=== PATIENT | male | born 1930 | race Caucasian/White ===

== ENCOUNTER 2016-08-30 11:33 | Observation (INO) | payer MEDICARE, BC ==
[2016-08-30 12:14] LABS: BASOPHIL % 0.2 % (0.0-0.4); Eosinophil % 2.6 % (0.00-5.0); Granulocytes % 71.6 % (36.0-66.0); Mean Cell Volume 90.6 fl (78-100); Mean Corpuscular Hemoglobin 28.8 pg (26-32); Mean Platelet Volume 8.8 fl (6-9.5); Monocytes % 9.6 % (0.0-12.0); Platelet Count 168 K/mm3 (150-450); Red Blood Count 4.45 M/mm3 (4.1-5.6); Red Cell Distribution Width 16.7 % (11.5-14.0); White Blood Count 5.3 K/mm3 (4.0-10.5)
[2016-08-30 12:32] LABS: INR 2.54 (0.8-3.0); PROTIME 27.7 SECONDS (8.83-12.87)
[2016-08-30 13:02] LABS: Collection Type VOID
[2016-08-30 13:03] LABS: COMPLETE URINE MICROSCOPIC? YES; Ph 5.5 (5-6)
[2016-08-30 13:10] LABS: ANION GAP 14.8 MEQ/L (5-15); BILIRUBIN,TOTAL 0.3 mg/dL (0.2-1.0); Carbon Dioxide 23.6 mEq/L (21-32); Potassium 4.3 mEq/L (3.5-5.1); Total Protein 7.8 gm/dL (6.4-8.2)
[2016-08-30 13:13] LABS: Bacteria MODERATE /HPF (NEGATIVE); Epithelial Cells FEW /HPF (FEW); WBC 25-50 /HPF (0-5); Yeast MANY /HPF (NEGATIVE)
--- NOTE | 2016-08-30 14:30 | ERPHSYRPT ---
- History of Present Illness Time Seen by Provider: 08/30/16 11:33 Source: patient, family, EMS, old records Exam Limitations: clinical condition, physical impairment Patient Subjective Stated Complaint: increased loc intermittent for days Triage Nursing Assessment: states he has increased confusion for days-- more lethargic. incont of urine which is not normal. pt pleasantly confused. pupils 2mm and reactive. 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 skin warm and dry. Time of Onset/Last Time Seen Normal: 3 days ago was at baseline for post stroke Timing/Duration: day(s) (3) Severity: moderate Character of Deficits: new weakness, general (difuse), other (urine incontinence ) Deficits: cannot walk, decrease ability to stand, weak Baseline/Normal Cognition: alert but confused Current Cognition: alert but confused Baseline Gait: unable to walk Associated Symptoms: confusion, weakness Allergies/Adverse Reactions: No Known Drug Allergies Allergy (Verified 08/30/16 11:50) Home Medications: Atorvastatin Calcium 40 mg PO HS 08/07/15 [History] Carvedilol 3.125 mg [Coreg 3.125 MG] 3.125 mg PO BID 08/07/15 [History] Donepezil HCl 10 mg [Aricept 10 MG] 10 mg PO HS 08/07/15 [History] Duloxetine HCl 30 mg [Cymbalta 30 MG Capsule] 60 mg PO DAILY 08/07/15 [ History] Insulin Glargine [Lantus Insulin] 40 units SQ BIDPRN PRN 08/07/15 [History] Memantine HCl 5 mg [Namenda 5 MG] 10 mg PO BID 08/07/15 [History] Omeprazole [Prilosec] 20 mg PO DAILY 08/07/15 [History] Tramadol HCl 50 mg [Ultram 50 mg] 50 mg PO Q4HPRN PRN 08/07/15 [History] Trazodone HCl 100 mg PO HS 08/07/15 [History] Warfarin Sodium 5 mg [Coumadin 5 MG] 5 mg PO DAILY 08/07/15 [History] Bumetanide 0.5 mg PO DAILY 02/22/16 [History] Hx Tetanus, Diphtheria Vaccination/Date Given: Yes Hx Influenza Vaccination/Date Given: Yes Hx Pneumococcal Vaccination/Date Given: Yes Immunizations Up to Date: Yes - Review of Systems Constitutional: Lethargy, Weakness Eyes: No Symptoms Ears, Nose, & Throat: No Symptoms Respiratory: No Symptoms Cardiac: No Symptoms Abdominal/Gastrointestinal: No Symptoms Genitourinary Symptoms: Incontinence Skin: No Symptoms Neurological: Lethargy Psychological: Depression Endocrine: No Symptoms Hematologic/Lymphatic: No Symptoms Immunological/Allergic: No Symptoms - Past Medical History Pertinent Past Medical History: Yes Neurological History: Stroke ENT History: No Pertinent History Cardiac History: Arrhythmia, Congestive Heart Failure, High Cholesterol, Hypertension Respiratory History: Bronchitis, CHF, Pneumonia Endocrine Medical History: Diabetes Type II Musculoskeletal History: No Pertinent History GI Medical History: GERD, Gallbladder Disease History: Other Psycho-Social History: No Pertinent History Male Reproductive Disorders: Prostate Problems Other Medical History: ILEUS ANEURYSM. ENLARGED PROSTATE. KIDNEY STONES - Past Surgical History Past Surgical History: Yes Neuro Surgical History: No Pertinent History Cardiac: Other Respiratory: No Pertinent History Gastrointestinal: Cholecystectomy Genitourinary: Kidney Surgery Musculoskeletal: No Pertinent History Male Surgical History: No Pertinent History Other Surgical History: left carotid artery. STENT PLACEMENTS IN BOTH URETERS - Social History Smoking Status: Never smoker Exposure to second hand smoke: Yes Drug Use: none Patient Lives Alone: No - Nursing Vital Signs Nursing Vital Signs: Initial Vital Signs Temperature 97.9 F Temperature Source Oral Pulse Rate 70 Respiratory Rate 18 Blood Pressure 139/70 Pain Intensity 0 - Vaibhav Coma Scale Best Eye Response ([place]): (4) open spontaneously Best Verbal Response ([place]): (4) confused conversation Best Motor Response ([place]): (6) obeys commands [place] Total: 14 - Physical Exam General Appearance: no apparent distress, lethargy Eye Exam: bilateral eye: normal inspection, PERRL Ears, Nose, Throat Exam: normal ENT inspection, pharynx normal Neck Exam: normal inspection, non-tender, supple, full range of motion Respiratory: normal breath sounds, lungs clear Cardiovascular: regular rate/rhythm, normal heart sounds, normal peripheral pulses, edema Gastrointestinal: soft, normal bowel sounds Extremity Exam: pelvis stable, pedal edema, swelling Mental Status: alert, cooperative, disoriented to person, disoriented to time, 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, tongue midline Motor/Sensory: weak motor strength RUE, weak motor strength RLE Skin Exam: normal color, warm, dry SpO2 Interpretation: normal SpO2: 95 Oxygen Delivery: Room Air - Course Nursing assessment & vital signs reviewed: Yes EKG Interpreted by Me: RATE (76), Sinus Rhythm, NORMAL AXIS, 1st degree AV Block , NORMAL QRS, Other (No acute ischemic changes) Ordered Tests: Active Orders 24 hr Category Date Time Status Catheter-Sheridan Omalley STAT Care 08/30/16 11:55 Active EKG-ER Only STAT Care 08/30/16 11:55 Active IV Insertion STAT Care 08/30/16 12:42 Active Oxygen-ED Only NASAL CANNULA 2 lpm Care 08/30/16 11:55 Active Pulse Oximetry (ED) STAT Care 08/30/16 12:43 Active CHEST 1 VIEW (PORTABLE) Stat Exams 08/30/16 11:56 Taken HEAD WITHOUT CONTRAST [CT] Stat Exams 08/30/16 11:58 Taken BLOOD CULTURE Stat Lab 08/30/16 12:55 Received CBC W DIFF Stat Lab 08/30/16 12:00 Completed CMP Stat Lab 08/30/16 12:00 Completed PROTIME WITH INR Stat Lab 08/30/16 12:00 Completed UA W/ MICROSCOPIC Stat Lab 08/30/16 12:55 Completed Lab/Rad Data: Laboratory Result Diagrams 08/30/16 12:00 08/30/16 12:00 Laboratory Results 08/30/16 08/30/16 08/30/16 Range/Units 12:55 12:00 12:00 WBC (4.0-10.5) K/mm3 RBC (4.1-5.6) M/mm3 Hgb (12.5-18.0) gm/dl Hct (42-50) % MCV (78-100) fl MCH (26-32) pg MCHC (32-36) g/dl RDW (11.5-14.0) % Plt Count (150-450) K/mm3 MPV (6-9.5) fl Gran % (36.0-66.0) % Lymphocytes % (24.0-44.0) % Monocytes % (0.0-12.0) % Eosinophils % (0.00-5.0) % Basophils % (0.0-0.4) % Basophils # (0-0.4) INR 2.54 (0.8-3.0) Sodium 137 (136-145) mEq/L Potassium 4.3 (3.5-5.1) mEq/L Chloride 103 (98-107) mEq/L Carbon Dioxide 23.6 (21-32) mEq/L Anion Gap 14.8 (5-15) MEQ/L BUN 32 H (9-20) mg/dL Creatinine 1.69 H (0.55-1.30) mg/dl Estimated GFR 41 ML/MIN Glucose 286 H (70-110) MG/DL Calcium 8.8 (8.5-10.1) mg/dL Total Bilirubin 0.3 (0.2-1.0) mg/dL AST 29 (15-37) U/L ALT 13 (12-78) U/L Alkaline Phosphatase 106 (46-116) U/L Serum Total Protein 7.8 (6.4-8.2) gm/dL Albumin 3.0 L (3.4-5.0) g/dL Ur Collection Type VOID Urine Color YELLOW (YELLOW) Urine Appearance CLOUDY (CLEAR) Urine pH 5.5 (5-6) Ur Specific [place] 1.015 (1.005-1.025) Urine Protein 30 (Negative) Urine Glucose (UA) 500 (NEGATIVE) mg/dL Urine Ketones NEGATIVE (NEGATIVE) Urine Nitrite NEGATIVE (NEGATIVE) Urine Bilirubin NEGATIVE (NEGATIVE) Urine Urobilinogen 0.2 (0-1) mg/dL Urine WBC (Auto) TRACE (NEGATIVE) Urine RBC (Auto) SMALL (0-5) Kaz/ul Urine Microscopic RBC 5-10 (0-2) /HPF Urine Microscopic WBC 25-50 (0-5) /HPF Ur Epithelial Cells FEW (FEW) /HPF Urine Bacteria MODERATE (NEGATIVE) /HPF Urine Yeast MANY (NEGATIVE) /HPF Specimen Received 08/30/16 1255 08/30/16 Range/Units 12:00 WBC 5.3 (4.0-10.5) K/mm3 RBC 4.45 (4.1-5.6) M/mm3 Hgb 12.8 (12.5-18.0) gm/dl Hct 40.3 L (42-50) % MCV 90.6 (78-100) fl MCH 28.8 (26-32) pg MCHC 31.8 L (32-36) g/dl RDW 16.7 H (11.5-14.0) % Plt Count 168 (150-450) K/mm3 MPV 8.8 (6-9.5) fl Gran % 71.6 H (36.0-66.0) % Lymphocytes % 16.0 L (24.0-44.0) % Monocytes % 9.6 (0.0-12.0) % Eosinophils % 2.6 (0.00-5.0) % Basophils % 0.2 (0.0-0.4) % Basophils # 0.01 (0-0.4) INR (0.8-3.0) Sodium (136-145) mEq/L Potassium (3.5-5.1) mEq/L Chloride (98-107) mEq/L Carbon Dioxide (21-32) mEq/L Anion Gap (5-15) MEQ/L BUN (9-20) mg/dL Creatinine (0.55-1.30) mg/dl Estimated GFR ML/MIN Glucose (70-110) MG/DL Calcium (8.5-10.1) mg/dL Total Bilirubin (0.2-1.0) mg/dL AST (15-37) U/L ALT (12-78) U/L Alkaline Phosphatase (46-116) U/L Serum Total Protein (6.4-8.2) gm/dL Albumin (3.4-5.0) g/dL Ur Collection Type Urine Color (YELLOW) Urine Appearance (CLEAR) Urine pH (5-6) Ur Specific [place] (1.005-1.025) Urine Protein (Negative) Urine Glucose (UA) (NEGATIVE) mg/dL Urine Ketones (NEGATIVE) Urine Nitrite (NEGATIVE) Urine Bilirubin (NEGATIVE) Urine Urobilinogen (0-1) mg/dL Urine WBC (Auto) (NEGATIVE) Urine RBC (Auto) (0-5) Kaz/ul Urine Microscopic RBC (0-2) /HPF Urine Microscopic WBC (0-5) /HPF Ur Epithelial Cells (FEW) /HPF Urine Bacteria (NEGATIVE) /HPF Urine Yeast (NEGATIVE) /HPF Specimen Received - Progress Progress: unchanged Counseled pt/family regarding: lab results, diagnosis, need for follow-up, rad results - Departure Time of Disposition: 14:30 Departure Disposition: Observation Clinical Impression: Heart failure Qualifiers: Heart failure type: unspecified heart failure type Heart failure chronicity: acute on chronic Qualified Code(s): I50.9 - Heart failure, unspecified UTI (urinary tract infection) Qualifiers: Urinary tract infection type: site unspecified Hematuria presence: with hematuria Qualified Code(s): N39.0 - Urinary tract infection, site not specified ; R31.9 - Hematuria, unspecified TIA (transient ischemic attack) Qualifiers: Transient cerebral ischemia type: unspecified Qualified Code(s): G45.9 - Transient cerebral ischemic attack, unspecified Condition: Stable Critical Care Time: Yes Critical Care Time(excluding separately billable procedures): 75-104 minutes
[2016-08-30] MEDS ORDERED: ROCEPHIN 1 Gm-D5w 50 ml Bag** 50 ML IV ONE ×2 (14:47→15:08)
[2016-08-30] MEDS: NovoLOG Insulin SQ PRN ×2 (17:31→22:11)
[2016-08-30] MEDS ORDERED: Lantus Insulin SQ PRN (19:22)
--- NOTE | 2016-08-30 20:31 | XRAY ---
Indication: Mental status change. Right upper extremity weakness. History of CVA. Multiple contiguous axial images obtained through the head without contrast. Comparison: January 28, 2016 Stable age-appropriate global atrophy, mild periventricular degenerative micro-ischemia, and old left parietal infarct. No acute intracranial hemorrhage, abnormal extra-axial fluid collection, or mass effect. Fourth ventricle is midline without hydrocephalus. Bony calvarium intact. Visualized paranasal sinuses and mastoid air cells are clear. Impression: Stable nonacute senile brain again with old left parietal infarct. Comment: Preliminary interpretation was made by [facility]. No discrepancy. CTDI is 67.17
--- NOTE | 2016-08-30 20:33 | XRAY ---
Indication: Mental status change. Right upper extremity weakness. Comparison: February 22, 2016 Portable chest remains clear. Heart remains borderline in enlarged with tortuous descending aorta. Vascularity normal. Bony thorax intact again with mild osteopenia and degenerative changes. Again previous left carotid endarterectomy. Impression: Stable nonacute chest with chronic features.
[2016-08-30] MEDS ORDERED: Coumadin 5 MG PO ONE (21:52)
[2016-08-30] MEDS ORDERED: LIPITOR 40MG PO SCH (22:00)
[2016-08-30] MEDS: Coreg 3.125 MG PO SCH (22:09)
[2016-08-30] MEDS: DESYREL 50 MG PO SCH (22:09)
[2016-08-30] MEDS: Aricept 10 MG PO SCH (22:09)
[2016-08-30] MEDS: Namenda 5 MG PO SCH (22:10)
[2016-08-30] MEDS: ZOCOR 20MG PO SCH (22:10)
[2016-08-31 05:41] LABS: Mean Cell Volume 90.5 fl (78-100); Mean Platelet Volume 8.9 fl (6-9.5); Platelet Count 145 K/mm3 (150-450); Red Blood Count 4.22 M/mm3 (4.1-5.6); Red Cell Distribution Width 16.4 % (11.5-14.0); White Blood Count 4.9 K/mm3 (4.0-10.5)
[2016-08-31 05:56] LABS: Mean Corpuscular Hemoglobin 28.6 pg (26-32)
[2016-08-31 06:04] LABS: INR 2.52 (0.8-3.0); PROTIME 27.5 SECONDS (8.83-12.87)
[2016-08-31 06:18] LABS: ANION GAP 10.6 MEQ/L (5-15); Potassium 4.1 mEq/L (3.5-5.1)
[2016-08-31] MEDS ORDERED: Lantus Insulin SQ PRN (06:35)
[2016-08-31] MEDS ORDERED: MEDICATION INTERVENTION MC SCH ×2 (07:15)
[2016-08-31] MEDS: NovoLOG Insulin SQ PRN ×3 (07:49→21:43)
[2016-08-31] MEDS: ULTRAM 50 MG PO PRN ×3 (08:53→18:05)
[2016-08-31] MEDS ORDERED: NON-FORMULARY ITEM (Empagliflozin [Jardiance] 10 MG) PO SCH (10:00)
[2016-08-31] MEDS ORDERED: NON-FORMULARY ITEM (Omeprazole [Prilosec] 20 MG) PO SCH (10:00)
[2016-08-31] MEDS ORDERED: NON-FORMULARY ITEM (Naloxegol Oxalate [Movantik] 25 MG) PO SCH (10:00)
[2016-08-31] MEDS ORDERED: BUMETANIDE 0.5 MG PO SCH (10:00)
[2016-08-31] MEDS: BUMEX 1 MG PO SCH (10:31)
[2016-08-31] MEDS: Namenda 5 MG PO SCH ×2 (10:32→21:41)
[2016-08-31] MEDS: PROTONIX 40 MG IV IV SCH (10:32)
[2016-08-31] MEDS: Coreg 3.125 MG PO SCH ×2 (10:32→21:41)
[2016-08-31] MEDS: Cymbalta 30 MG Capsule PO SCH (10:32)
[2016-08-31] MEDS: ROCEPHIN 1 Gm-D5w 50 ml Bag** 50 ML IV SCH (10:46)
[2016-08-31] MEDS ORDERED: ULTRAM 50 MG PO PRN (17:12)
[2016-08-31] MEDS: Diflucan/Saline 0.2G/100ML PREMIX*** 200 ML IV SCH (17:44)
[2016-08-31] MEDS: CITROMA 296 ML PO SCH (17:49)
[2016-08-31] MEDS: Coumadin 5 MG PO SCH (17:49)
[2016-08-31] MEDS ORDERED: ULTRAM 50 MG ONE (18:04)
[2016-08-31] MEDS: ZOCOR 20MG PO SCH (21:41)
[2016-08-31] MEDS: Aricept 10 MG PO SCH (21:41)
[2016-08-31] MEDS: DESYREL 50 MG PO SCH (21:41)
[2016-09-01 06:42] LABS: INR 2.41 (0.8-3.0); PROTIME 26.3 SECONDS (8.83-12.87)
--- NOTE | 2016-09-01 07:56 | HP ---
CHIEF COMPLAINT: Abdominal discomfort, feeling poorly associated with urinary infection. HISTORY OF PRESENT ILLNESS: The patient apparently was seen by a physician recently and started on Levaquin and did reasonably okay. Initially felt better however later on started to feel poorly and significant abdominal discomfort and pain, started to become lethargic and change in status. With that he was brought to the emergency room and was hospitalized for urinary tract infection, possibility of transient ischemic attack. 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 The patient also has a history of diabetes mellitus, hypertension, history of CVA in the past on Coumadin. He has hyperlipidemia, reflux and some Alzheimer's disease. History of chronic congestive heart failure. MEDICATIONS: Coreg 3.125 p.o. b.i.d., Aricept 10 daily and insulin Glargine 40 units subcu b.i.d., Namenda 5 mg daily, Prilosec 40 daily, tramadol 50 every four hours, Desyrel 50, and Coumadin 5 mg once daily. The patient was also was recently started on Jardiance and Movantik. REVIEW OF SYSTEMS: No fever. HEENT: Normocephalic. SKIN: Dry. CVS: Denied any chest pain or palpitations. PULMONARY: Negative. GI: The patient had some stomach discomfort, some distention. EXTREMITIES: No edema. NEUROLOGIC: Alert with no focal deficits. SOCIAL HISTORY: Ex-smoker. Alcohol negative. FAMILY HISTORY: Noncontributory. PHYSICAL EXAMINATION: The patient is lying on bed, has right hemiplegia, inability to move the right side. His vital signs at the time of examination blood pressure 139/70, pulse 70, respirations 18, afebrile 97.9F. HEENT: Pupils reactive. NECK: No JVD. No thyromegaly. No lymphadenopathy. CHEST: Good air entry bilaterally. HEART: Normal. ABDOMEN: Mild tenderness. EXTREMITIES: Mildly rigid pulse and decreased. No edema. Pedal pulses present. NEUROLOGIC: Alert with no focal deficit. : The patient does have a Omalley catheter with drainage present and several areas of sediments present. LAB DATA AND TESTS: The patient's international normalized ratio of 2.54. Sodium 135, potassium 4.3, chloride 103, glucose 286, BUN 32, creatinine 1.69. UA showed significant white blood cells, red blood cells. There is drainage present around the catheter in the prepuce area. White blood cells 5.3, hemoglobin 12.8, hematocrit 41.3, MCV 90.6, MCH 28.8, granulocytes 71%. UA showed multiple white blood cells present as mentioned. ASSESSMENT AND PLAN: 1) Urinary tract infection, possibility of some fungus infection. The patient was started on Levaquin. Blood culture, urine culture and also Diflucan at this time. Culture from prepuce area and Omalley catheter. Change Omalley catheter if it has not been changed in the last two weeks. 2) Diabetes mellitus. Accu-Chek with some coverage and also long acting insulin. 3) History of congestive heart failure stable. Will hold on doing the IV fluids at this time. 4) Right hemiplegia. Recent CT scan was negative for any stroke. The patient is on Coumadin. International normalized ratio is therapeutic. In lieu of that no further intervention is needed at this time.
[2016-09-01] MEDS: BUMEX 1 MG PO SCH (10:22)
[2016-09-01] MEDS: ROCEPHIN 1 Gm-D5w 50 ml Bag** 50 ML IV SCH (10:22)
[2016-09-01] MEDS: CITROMA 296 ML PO SCH (10:23)
[2016-09-01] MEDS: Cymbalta 30 MG Capsule PO SCH (10:23)
[2016-09-01] MEDS: Coreg 3.125 MG PO SCH ×2 (10:23→21:37)
[2016-09-01] MEDS: Namenda 5 MG PO SCH ×2 (10:23→21:37)
[2016-09-01] MEDS: PROTONIX 40 MG IV IV SCH (10:24)
[2016-09-01] MEDS: NovoLOG Insulin SQ PRN ×3 (11:51→22:51)
[2016-09-01] MEDS: ULTRAM 50 MG PO PRN ×2 (14:28→18:12)
--- NOTE | 2016-09-01 14:28 | PROG NOTE ---
DATE: 09/01/2016 Chart is reviewed and events noted. At the time of this evaluation the patient is alert, awake. He was getting a little more confused as per family who was present at the time of evaluation. Also, the patient complaining. As per patient's family, the patient has also been having abdominal symptoms/pain for the past three weeks or so and has not been eating much. Appears comfortable. PHYSICAL EXAMINATION: VITAL SIGNS: Blood pressure 156/79, heart rate 70, respiratory rate 18, temperature 98.4F. Oxygen saturation 99% on room air. HEENT: No pallor or icterus is noted. NECK: No JVD is present. CVS: S1, S2 present. RESPIRATORY: Breath sounds are bilaterally diminished, clear to auscultation anteriorly. ABDOMEN: Obese, soft, mild epigastric tenderness is present. NEURO: He is alert, awake, appears confused, answers simple questions. EXTREMITIES: Reveals trace edema on bilateral lower extremities. LABORATORY DATA AND TESTS: Labs from 08/31/2016 were reviewed. Today's international normalized ratio was 2.41. Blood cultures from 08/30/2016 have revealed no growth so far. Urine culture is pending. Medications were reviewed. ASSESSMENT: An 85 year old male with impression: 1) Urinary tract infection. 2) Encephalopathy. 3) Abdominal pain. 4) Prior history of CVA. 5) Diabetes mellitus. 6) History of hypertension/congestive heart failure. 7) History of aneurysm. 8) History of depression. 9) Renal insufficiency. PLAN: Will continue to monitor neurological status. Continue to follow CBC and electrolytes. Continue broad spectrum IV antibiotics. Family is requesting CT of abdomen scan to be obtained due to ongoing abdominal pain to follow up aneurysm and will obtain that. Also per patient/family request we will change him to regular diet. The patient's clinical condition, work-up results and plan of management was discussed with patient and his family. They had multiple questions which were answered at length. They seemed to be in understanding and agreement.
[2016-09-01] MEDS ORDERED: Sodium Chloride 0.9% 10 ML FLUSH Syringe IV PRN (16:29)
--- NOTE | 2016-09-01 16:38 | XRAY ---
Indication: Abdominal pain. Aneurysm. Patient confused. Multiple contiguous axial images obtained through the abdomen and pelvis without contrast as ordered. Comparison: February 22, 2016 Lung bases demonstrate stable bibasilar dependent atelectasis. Heart is not enlarged. Stable small hiatal hernia. Noncontrasted stomach and bowel loops appear nonobstructed. Stable mild scattered colonic diverticulosis without diverticulitis. Normal appendix. No free fluid/air. Stable scattered arteriosclerotic calcifications including 3.1 cm distal AAA. Stable nonobstructing left renal punctate calculus. New Omalley catheter empties the bladder. Again previous cholecystectomy. Remaining liver, pancreas, spleen, adrenal glands, kidneys, ureters, and bladder appear unremarkable for noncontrast exam. Osseous structures intact again with degenerative changes throughout the spine. Impression: 1. No acute intra-abdominal/pelvic abnormalities on this noncontrast exam. 2. Stable 3.1 cm distal AAA, nonobstructing left renal micro-calculus, colonic diverticulosis, and hiatal hernia. CTDI is 34.18
[2016-09-01] MEDS: Diflucan/Saline 0.2G/100ML PREMIX*** 200 ML IV SCH (18:12)
[2016-09-01] MEDS: Coumadin 5 MG PO SCH (18:12)
[2016-09-01] MEDS: PATIENT OWN MEDICATION PO SCH (18:13)
[2016-09-01] MEDS: ZOCOR 20MG PO SCH (21:37)
[2016-09-01] MEDS: DESYREL 50 MG PO SCH (21:37)
[2016-09-01] MEDS: Aricept 10 MG PO SCH (21:37)
[2016-09-01] MEDS ORDERED: Sodium Chloride 0.9% 10 ML FLUSH Syringe IV SCH (22:00)
[2016-09-02 05:46] LABS: INR 2.92 (0.8-3.0); PROTIME 31.7 SECONDS (8.83-12.87)
[2016-09-02 07:10] VITALS: O2SAT 94
[2016-09-02] MEDS: NovoLOG Insulin SQ PRN ×2 (07:53→11:46)
[2016-09-02] MEDS ORDERED: PATIENT OWN MEDICATION PO SCH (10:00)
[2016-09-02] MEDS: BUMEX 1 MG PO SCH (10:10)
[2016-09-02] MEDS: Coreg 3.125 MG PO SCH (10:10)
[2016-09-02] MEDS: Cymbalta 30 MG Capsule PO SCH (10:10)
[2016-09-02] MEDS: Namenda 5 MG PO SCH (10:10)
[2016-09-02] MEDS: PATIENT OWN MEDICATION PO SCH (10:11)
[2016-09-02] MEDS: ULTRAM 50 MG PO PRN (10:15)
[2016-09-02] MEDS: ROCEPHIN 1 Gm-D5w 50 ml Bag** 50 ML IV SCH (10:16)
[2016-09-02] MEDS: PROTONIX 40 MG IV IV SCH (10:16)
[2016-09-02 11:30] VITALS: BP 138/66; PULSE 64
[2016-09-02 11:54] LABS: Mean Cell Volume 92.4 fl (78-100); Mean Platelet Volume 9.6 fl (6-9.5); Platelet Count 162 K/mm3 (150-450); Red Blood Count 4.06 M/mm3 (4.1-5.6); Red Cell Distribution Width 16.6 % (11.5-14.0); White Blood Count 5.5 K/mm3 (4.0-10.5)
[2016-09-02 12:06] LABS: ALBUMIN 2.8 g/dL (3.4-5.0); ANION GAP 13.8 MEQ/L (5-15); BILIRUBIN,TOTAL 0.3 mg/dL (0.2-1.0); Potassium 4.3 mEq/L (3.5-5.1); Total Protein 7.3 gm/dL (6.4-8.2)
--- NOTE | 2016-09-03 11:52 | DS ---
DISCHARGE DIAGNOSIS: 1. URINARY TRACT INFECTION. 2. ENCEPHALOPATHY. 3. ABDOMINAL PAIN - RESOLVED. 4. HISTORY OF PRIOR CEREBROVASCULAR ACCIDENT. 5. DIABETES MELLITUS. 6. HYPERTENSION/CONGESTIVE HEART FAILURE. 7. HISTORY OF ANEURYSM. 8. HISTORY OF DEPRESSION. 9. RENAL INSUFFICIENCY. HOSPITAL COURSE: Mr. Owusu is an 85 y/o male with multiple medical problems. He was admitted through Emergency Room on 08/30/16 with increasing confusion and occasional lethargy for a few days prior to his admission. Also, upon arrival in the Emergency Room, patient was noted to be pleasantly confused. Lab work-up was notable for BMP with BUN of 32, creatinine 1.69, normal WBC, urinary tract infection. Chest x-ray had revealed stable nonacute chest with chronic features. CT scan of head showed stable nonacute senile brain with old left parietal infarct. Please refer to Dr. Stewart's H&P for details. He was placed on IV fluids, broad spectrum IV antibiotics. Blood cultures from 08/30/16 have remained negative X 2. Culture from penile area showed yeast. Urine culture is pending. Troponin was within normal limits. Lipase was within normal limits. EKG had shown escape rhythm with 1 ventricular extra systole with compensatory pause. EKG on admission had shown sinus rhythm, 1st degree AV block. During his further course, he had also reported some abdominal pain. Also, patient's family had mentioned that he was diagnosed to have aneurysm a few months back. Due to his symptoms and per family's request, CT scan of abdominal and pelvis was obtained yesterday and that showed no acute intraabdominal/pelvic abnormalities, stable 3.1 cm distal abdominal aortic aneurysm, nonobstructing left renal microcalculus, colonic diverticulosis, hiatal hernia. After obtaining CT scan, patient was placed on regular diet per his request and he tolerated that well. His abdominal pain has resolved. During his further course, he improved clinically. He still remains somewhat confused. However, is back to his baseline. Per family/nursing, he otherwise remains hemodynamically stable. He is being discharged home in stable condition. CMP and CBC have been requested and will review those lab results prior to discharge. At the time of this evaluation, he is alert, awake, and comfortable. Denies pain. Denies increased shortness of breath. Appears comfortable. VITALS: BP 123/67, heart rate 65, respiratory rate 18, temperature 98, O2 saturation of 94% on 2 liters. HEENT: No pallor or icterus noted. NECK: No JVD present. CVS: S1 and S2 present. RESPIRATORY: Breath sounds bilaterally diminished. ABDOMEN: Obese, soft, nontender. NEURO: He is alert and awake. Mildly confused (chronic). Answers simple questions. EXTREMITIES: Reveals trace edema on bilateral lower extremities. LABORATORY DATA: INR from today was 2.92 Medications were reviewed. ASSESSMENT: As outlined in discharge diagnosis. PLAN: Patient was admitted with some worsening of confusion. Was diagnosed to have urinary tract infection and renal insufficiency. He underwent work-up and treatment as noted. He improved clinically. Also, He underwent work-up for abdominal pain and that has now resolved. He is tolerating diet well. Remains hemodynamically stable. He is back to his baseline mental status. He is being discharged home in stable condition. Will hold Coumadin today and I have advised to restart Coumadin tomorrow at temperature current dose and recheck INR on 09/07/16. Also, repeat labs are to be obtained in 1 week. Patient is being placed on PO antibiotics at the time of discharge. I have advised patient's family to continue to monitor his Accu-Cheks closely. Compliance with diet and medications was stressed. I have advised patient to follow-up with Dr. Frank in office in 10 days. I have advised patient to return to Emergency Room [facility] if any news or symptoms or reappearance of previous signs and symptoms are noted. The patient's clinical condition, work-up results, and plan of management were discussed at length with patient's family. Their questions were answered in detail. Family seems to be in understanding and agreement of current work-up results, plan of management, and plan after discharge. Please refer to patient's chart, labs, diagnostic work-up results, and consultants notes for details. Please refer to discharge medication list from 09/02/16 for details of medications on discharge.
== END 2016-09-02 15:29 | disposition home or self-care (01) ==
LOC: ED 11:33 → MED SURG 15:55
PROVIDERS: ADMIT General Practice; ATTEND General Practice
DX: G93.40 Encephalopathy, unspecified (principal); Z86.73 Personal history of transient ischemic attack (TIA), and cerebral infarction without residual deficits; E11.9 Type 2 diabetes mellitus without complications; I11.0 Hypertensive heart disease with heart failure; I50.9 Heart failure, unspecified; F32.9 Major depressive disorder, single episode, unspecified; N28.9 Disorder of kidney and ureter, unspecified; E78.5 Hyperlipidemia, unspecified; Z79.01 Long term (current) use of anticoagulants; G30.9 Alzheimer's disease, unspecified; F02.80 Dementia in other diseases classified elsewhere, unspecified severity, without behavioral disturbance, psychotic disturbance, mood disturbance, and anxiety; G81.94 Hemiplegia, unspecified affecting left nondominant side; Z79.899 Other long term (current) drug therapy
CPT/HCPCS: 36000; 36415; 51702; 70450; 71010; 74176; 80048; 80053; 81000; 82962; 83036; 83690; 84134; 84484; 85025; 85027; 85610; 87040; 87070; 87077; 87086; 87186; 93005; 93041; 93268; 94760; 96365; 99284; G0378; J0696; J1450

== ENCOUNTER 2017-01-27 18:46 | Emergency (ER) | payer MEDICARE, BC ==
[2017-01-27] MEDS ORDERED: Sodium Chloride 0.9% 1000 ML 1,000 ML IV SCH (19:15)
--- NOTE | 2017-01-27 19:18 | ERPHSYRPT ---
- History of Present Illness Time Seen by Provider: 01/27/17 19:00 Historian: patient, family () Exam Limitations: no limitations Patient Subjective Stated Complaint: vomited last night. today is weaker than normal. hx right side stroke. also having right flank pain. Triage Nursing Assessment: to room per w/c accompanied by . skin w/d, color pale, resp easy. right side flaccid. assist of two to cot. right lower quad tender. bowel sounds normal Physician History: SINCE LAST NIGHT PT HAS HAD SHARP STABBING RIGHT FLANK/RLQ ABDOMINAL PAIN LASTING UP TO 8 HOURS PER EPISODE WITH VOMITING ONCE YESTERDAY, DIAPHORESIS, DIZZINESS AND TINNITUS IN THE RIGHT EAR. Allergies/Adverse Reactions: No Known Drug Allergies Allergy (Verified 01/27/17 19:09) Home Medications: Atorvastatin Calcium 40 mg PO HS 08/07/15 [History] Carvedilol 3.125 mg [Coreg 3.125 MG] 3.125 mg PO BID 08/07/15 [History] Donepezil HCl 10 mg [Aricept 10 MG] 10 mg PO HS 08/07/15 [History] Duloxetine HCl 30 mg [Cymbalta 30 MG Capsule] 60 mg PO DAILY 08/07/15 [ History] Insulin Glargine [Lantus Insulin] 40 units SQ BID 08/07/15 [History] Memantine HCl 5 mg [Namenda 5 MG] 10 mg PO BID 08/07/15 [History] Omeprazole [Prilosec] 20 mg PO DAILY 08/07/15 [History] Tramadol HCl 50 mg [Ultram 50 mg] 50 mg PO Q4HPRN PRN 08/07/15 [History] Trazodone HCl 100 mg PO HS 08/07/15 [History] Bumetanide 0.5 mg PO DAILY 02/22/16 [History] Empagliflozin [Jardiance] 10 mg PO DAILY 08/30/16 [History] Apixaban [Eliquis] 2.5 mg PO BID 01/27/17 [History] Docusate Sodium [Stool Softener] 100 mg PO TID 01/27/17 [History] Loratadine 10 mg [Claritin 10 mg] 10 mg PO DAILY 01/27/17 [History] Potassium Chloride [Klor-Con 10] 10 meq PO BID 01/27/17 [History] Hx Tetanus, Diphtheria Vaccination/Date Given: No Hx Influenza Vaccination/Date Given: Yes Hx Pneumococcal Vaccination/Date Given: Yes Immunizations Up to Date: No - Review of Systems Ears, Nose, & Throat: Tinnitus Abdominal/Gastrointestinal: Abdominal Pain, Vomiting Neurological: Dizziness Endocrine: Excessive Sweating All Other Systems: Reviewed and Negative - Past Medical History Pertinent Past Medical History: Yes Neurological History: Stroke ENT History: No Pertinent History Cardiac History: Arrhythmia, Congestive Heart Failure, High Cholesterol, Hypertension Respiratory History: Bronchitis, CHF, Pneumonia Endocrine Medical History: Diabetes Type II Musculoskeletal History: No Pertinent History GI Medical History: GERD, Gallbladder Disease History: Other Psycho-Social History: No Pertinent History Male Reproductive Disorders: Prostate Problems Other Medical History: ILEUS ANEURYSM. ENLARGED PROSTATE. KIDNEY STONES - Past Surgical History Past Surgical History: Yes Neuro Surgical History: No Pertinent History Cardiac: Other Respiratory: No Pertinent History Gastrointestinal: Cholecystectomy Genitourinary: Kidney Surgery Musculoskeletal: No Pertinent History Male Surgical History: No Pertinent History Other Surgical History: left carotid artery. STENT PLACEMENTS IN BOTH URETERS - Social History Smoking Status: Never smoker Exposure to second hand smoke: No Drug Use: none Patient Lives Alone: No - Nursing Vital Signs Nursing Vital Signs: Initial Vital Signs Temperature 97.3 F Temperature Source Oral Pulse Rate 74 Respiratory Rate 16 Blood Pressure [] 109/71 Pain Intensity 0 - Physical Exam General Appearance: alert Eye Exam: PERRL/EOMI Ears, Nose, Throat Exam: TMs normal, pharynx normal, moist mucous membranes Neck Exam: normal inspection Respiratory Exam: lungs clear Cardiovascular Exam: normal heart sounds Gastrointestinal/Abdomen Exam: soft, normal bowel sounds, No tenderness Back Exam: normal inspection, No rash Extremity Exam: other (WEAKNESS ON THE RIGHT UPPER AND LOWER EXTREMITIES) Neurologic Exam: alert, cooperative Skin Exam: warm, dry SpO2 Interpretation: borderline oxygenation SpO2: 92 Oxygen Delivery: Room Air - Course Nursing assessment & vital signs reviewed: Yes - CT Exams Abdomen/Pelvis CT Interpretation: Tele-radiologist Report (MILD NONSPECIFIC INFILTRATIVE CHANGES ARE NOTED WITHIN THE PERINEPHRIC REGION POSSIBLY REPRESENTING SEQUELA OF PRIOR INFECTION/INFLAMMATION. NO OBSTRUCTIVE UROPATHY. COLONIC DIVERTICULOSIS WITHOUT EVIDENCE OF DIVERTICULITIS. 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 SMALL HISTAL HERNIA.) Ordered Tests: Active Orders 24 hr Category Date Time Status Clean Catch Urine Specimen STAT Care 01/27/17 20:00 Active IV Insertion STAT Care 01/27/17 19:11 Active ABDOMEN AND PELVIS W/0 CONTRAS [CT] Stat Exams 01/27/17 19:12 Taken AMYLASE Stat Lab 01/27/17 19:35 Completed CBC W DIFF Stat Lab 01/27/17 19:35 Completed CMP Stat Lab 01/27/17 19:35 Completed CULTURE,URINE Stat Lab 01/27/17 19:11 Received LIPASE Stat Lab 01/27/17 19:35 Completed MAGNESIUM Stat Lab 01/27/17 19:35 Completed PROTIME WITH INR Stat Lab 01/27/17 19:35 Completed PTT Stat Lab 01/27/17 19:35 Completed UA W/ MICROSCOPIC Stat Lab 01/27/17 19:11 Completed Medication Summary Generic Name Dose Route Start Last Admin Trade Name Freq PRN Reason Stop Dose Admin Sodium Chloride 1,000 mls @ 100 mls/hr 01/27/17 19:15 01/27/17 19:24 Sodium Chloride 0.9% 1000 Ml IV 02/26/17 19:14 100 mls/hr .Q10H JAZ Administration Ceftriaxone Sodium/Dextrose 1 g in 50 mls @ 100 mls/hr 01/27/17 23:16 Rocephin 1 Gm-D5w 50 Ml Bag IV 01/27/17 23:45 STAT STA Lab/Rad Data: Laboratory Result Diagrams 01/27/17 19:35 01/27/17 19:35 Laboratory Results 01/27/17 01/27/17 01/27/17 Range/Units 19:35 19:35 19:35 WBC (4.0-10.5) K/mm3 RBC (4.1-5.6) M/mm3 Hgb (12.5-18.0) gm/dl Hct (42-50) % MCV (78-100) fl MCH (26-32) pg MCHC (32-36) g/dl RDW (11.5-14.0) % Plt Count (150-450) K/mm3 MPV (6-9.5) fl Gran % (36.0-66.0) % Lymphocytes % (24.0-44.0) % Monocytes % (0.0-12.0) % Eosinophils % (0.00-5.0) % Basophils % (0.0-0.4) % Basophils # (0-0.4) INR 1.11 (0.8-3.0) APTT 34.2 (24.1-36.1) SECONDS Sodium 133 L (136-145) mEq/L Potassium 4.1 (3.5-5.1) mEq/L Chloride 100 (98-107) mEq/L Carbon Dioxide 24.5 (21-32) mEq/L Anion Gap 12.6 (5-15) MEQ/L BUN 26 H (9-20) mg/dL Creatinine 1.43 H (0.55-1.30) mg/dl Estimated GFR 50 ML/MIN Glucose 260 H (70-110) MG/DL Calcium 9.3 (8.5-10.1) mg/dL Magnesium 2.1 (1.8-2.4) mg/dL Total Bilirubin 0.50 (0.2-1.0) mg/dL AST 25 (15-37) U/L ALT 17 (12-78) U/L Alkaline Phosphatase 95 (46-116) U/L Serum Total Protein 8.2 (6.4-8.2) gm/dL Albumin 3.2 L (3.4-5.0) g/dL Amylase 62 (25-115) U/L Lipase 324 (73-393) U/L Ur Collection Type Urine Color (YELLOW) Urine Appearance (CLEAR) Urine pH (5-6) Ur Specific [place] (1.005-1.025) Urine Protein (Negative) Urine Glucose (UA) (NEGATIVE) mg/dL Urine Ketones (NEGATIVE) Urine Nitrite (NEGATIVE) Urine Bilirubin (NEGATIVE) Urine Urobilinogen (0-1) mg/dL Urine WBC (Auto) (NEGATIVE) Urine RBC (Auto) (0-5) Kaz/ul Urine Microscopic RBC (0-2) /HPF Urine Microscopic WBC (0-5) /HPF Urine Bacteria (NEGATIVE) /HPF Urine Yeast (NEGATIVE) /HPF Specimen Received 01/27/17 01/27/17 Range/Units 19:35 19:11 WBC 6.4 (4.0-10.5) K/mm3 RBC 4.83 (4.1-5.6) M/mm3 Hgb 13.8 (12.5-18.0) gm/dl Hct 42.1 (42-50) % MCV 87.2 (78-100) fl MCH 28.6 (26-32) pg MCHC 32.8 (32-36) g/dl RDW 16.5 H (11.5-14.0) % Plt Count 176 (150-450) K/mm3 MPV 9.7 H (6-9.5) fl Gran % 63.4 (36.0-66.0) % Lymphocytes % 22.0 L (24.0-44.0) % Monocytes % 10.6 (0.0-12.0) % Eosinophils % 3.7 (0.00-5.0) % Basophils % 0.3 (0.0-0.4) % Basophils # 0.02 (0-0.4) INR (0.8-3.0) APTT (24.1-36.1) SECONDS Sodium (136-145) mEq/L Potassium (3.5-5.1) mEq/L Chloride (98-107) mEq/L Carbon Dioxide (21-32) mEq/L Anion Gap (5-15) MEQ/L BUN (9-20) mg/dL Creatinine (0.55-1.30) mg/dl Estimated GFR ML/MIN Glucose (70-110) MG/DL Calcium (8.5-10.1) mg/dL Magnesium (1.8-2.4) mg/dL Total Bilirubin (0.2-1.0) mg/dL AST (15-37) U/L ALT (12-78) U/L Alkaline Phosphatase (46-116) U/L Serum Total Protein (6.4-8.2) gm/dL Albumin (3.4-5.0) g/dL Amylase (25-115) U/L Lipase (73-393) U/L Ur Collection Type CLEAN CATCH Urine Color YELLOW (YELLOW) Urine Appearance CLOUDY (CLEAR) Urine pH 5.5 (5-6) Ur Specific [place] 1.010 (1.005-1.025) Urine Protein 100 (Negative) Urine Glucose (UA) 500 (NEGATIVE) mg/dL Urine Ketones NEGATIVE (NEGATIVE) Urine Nitrite NEGATIVE (NEGATIVE) Urine Bilirubin NEGATIVE (NEGATIVE) Urine Urobilinogen 0.2 (0-1) mg/dL Urine WBC (Auto) SMALL (NEGATIVE) Urine RBC (Auto) SMALL (0-5) Kaz/ul Urine Microscopic RBC 0-2 (0-2) /HPF Urine Microscopic WBC 15-25 (0-5) /HPF Urine Bacteria FEW (NEGATIVE) /HPF Urine Yeast FEW (NEGATIVE) /HPF Specimen Received [id number] - Departure Time of Disposition: 23:26 Departure Disposition: Home Clinical Impression: UTI, ABDOMINAL PAIN Condition: Fair Critical Care Time: No Referrals: HIGINIO BAILEY MD [Primary Care Provider] - Instructions: Urinary Tract Infection (UTI) Additional Instructions: FOLLOW UP WITH PRIVATE DOCTOR TOMORROW. Prescriptions: Promethazine HCl 25 mg [Phenergan 25 mg] 25 mg PO Q4H PRN PRN #14 tablet PRN Reason: Nausea/Vomiting Nitrofurantoin Macro 100 mg [Macrobid 100MG Capsule] 100 mg PO BID #20 capsule
[2017-01-27] MEDS ORDERED: Sodium Chloride 0.9% 1000 ML 1,000 ML ONE (19:19)
[2017-01-27 19:41] LABS: BASOPHIL % 0.3 % (0.0-0.4); Eosinophil % 3.7 % (0.00-5.0); Granulocytes % 63.4 % (36.0-66.0); Mean Cell Volume 87.2 fl (78-100); Mean Corpuscular Hemoglobin 28.6 pg (26-32); Mean Platelet Volume 9.7 fl (6-9.5); Monocytes % 10.6 % (0.0-12.0); Platelet Count 176 K/mm3 (150-450); Red Blood Count 4.83 M/mm3 (4.1-5.6); Red Cell Distribution Width 16.5 % (11.5-14.0); White Blood Count 6.4 K/mm3 (4.0-10.5)
[2017-01-27 19:58] LABS: INR 1.11 (0.8-3.0); PROTIME 12.4 SECONDS (8.83-12.87)
[2017-01-27 20:01] LABS: PTT 34.2 SECONDS (24.1-36.1)
[2017-01-27 20:08] LABS: ALBUMIN 3.2 g/dL (3.4-5.0); ANION GAP 12.6 MEQ/L (5-15); BILIRUBIN,TOTAL 0.5 mg/dL (0.2-1.0); Carbon Dioxide 24.5 mEq/L (21-32); Potassium 4.1 mEq/L (3.5-5.1); Total Protein 8.2 gm/dL (6.4-8.2)
[2017-01-27 20:31] LABS: Collection Type CLEAN CATCH
[2017-01-27 20:32] LABS: COMPLETE URINE MICROSCOPIC? YES; Ph 5.5 (5-6); WBC 15-25 /HPF (0-5)
[2017-01-27 20:34] LABS: ADD URINE CULTURE? YES (NO); Bacteria FEW /HPF (NEGATIVE); Yeast FEW /HPF (NEGATIVE)
[2017-01-27] MEDS ORDERED: ROCEPHIN 1 Gm-D5w 50 ml Bag** 1 G/50 ML IVPB IV STA (23:16)
[2017-01-27] MEDS ORDERED: ROCEPHIN 1 Gm-D5w 50 ml Bag** 1 G/50 ML IVPB IV ONE (23:21)
[2017-01-28 00:35] VITALS: BP 128/78; PULSE 72; O2SAT 94
--- NOTE | 2017-01-28 13:47 | XRAY ---
Exam: CT of the abdomen and pelvis without IV contrast from 01/27/2017. CTDI: 23.61 Comparison: CT of the abdomen and pelvis without IV contrast from 09/01/2016. Indication: Right flank pain. Technique: Non-IV contrast axial images were obtained through the abdomen and pelvis. Reconstructed coronal and sagittal images were created and reviewed. No oral contrast was given. Findings: Minimal curvilinear scarring or chronic atelectasis is seen at the posterior medial left lung base. The transverse heart size is normal. Right coronary artery vascular calcification is seen. I again see a small hiatal hernia on axial images #8 and #9. The liver appears normal. Surgical clips consistent with prior cholecystectomy are seen. No biliary duct distention is seen. The spleen is of normal size and reveals no mass. The pancreas and adrenal glands appear normal. The kidneys appear within normal limits of size. I again see a small punctate nonobstructing stone within the anterior medial aspect of the lower pole of the left kidney representing no change. This stone measures about 2.5 mm in diameter. Mild chronic perinephric stranding is seen. The ureters appear of normal diameter and reveal no ureterolith. No urinary bladder stone is seen. Marked atherosclerotic vascular disease is seen. There is a 3.2 cm x 3.1 cm minimal saccular aneurysm of the distal abdominal aorta representing no change. No abnormal retroperitoneal lymphadenopathy is seen. Abundant intraperitoneal fat is seen. There is no free intraperitoneal air. The anterior abdominal wall is mildly flaccid, but no ventral hernia is seen. I see no evidence of bowel obstruction. No inflammatory changes are seen within the right lower quadrant to suggest acute appendicitis. The appendix is of normal diameter. Mild scattered colonic stool is seen. I see mild distal descending and proximal sigmoid colon diverticulosis without evidence of acute diverticulitis. The pelvis reveals no free fluid. The urinary bladder appears unremarkable. The seminal vesicles are normal. The prostate gland appears borderline enlarged measuring about 5.1 cm in width and 3.75 cm in AP depth on axial image #73. The skeleton reveals no acute fracture or suspicious bone lesions. Degenerative changes are seen within the visualized thoracolumbar spine. Impression: 1. I see no evidence of acute obstructive uropathy. I again note mild bilateral perinephric stranding which represents no change from 09/01/2016. A 2.5 mm nonobstructing stone is seen within the lower pole of the left kidney. No hydronephrosis or ureterolith is seen, particularly on the right. No urinary bladder stone is seen. It. No findings of appendicitis are seen within the right lower quadrant. 3. Status post cholecystectomy, small hiatal hernia, stable 3.2 cm x 3.1 cm distal saccular abdominal aortic aneurysm, minimal distal descending and proximal sigmoid colon diverticulosis without diverticulitis, and borderline enlargement of the prostate gland are seen. 4. No other acute process is seen within the abdomen or pelvis.
== END 2017-01-28 00:35 | disposition home or self-care (01) ==
LOC: ED 18:46
DX: N39.0 Urinary tract infection, site not specified (principal); R10.31 Right lower quadrant pain; H93.19 Tinnitus, unspecified ear; R11.10 Vomiting, unspecified; R42 Dizziness and giddiness
CPT/HCPCS: 36000; 36415; 74176; 80053; 81000; 82150; 83690; 83735; 85025; 85610; 85730; 87086; 96360; 96361; 96365; 99285; J0696